=== PATIENT | male | born 1950 | race Caucasian/White ===

== ENCOUNTER 2016-10-28 08:49 | Emergency (ER) | payer MEDICARE, OTHER ==
--- NOTE | ~2016-10-28 | ER ---
PATIENT'S NAME: LILLIAN HAILE [facility] AGE: 66 Y [address] ROOM: [place], [place] [address] LOCATION: [facility] ADMIT DATE: 10/28/2016 ER/Outpatient Report DISCHARGE DATE: 10/28/2016 FAMILY PHYSICIAN: Deni Navas PA-C ATTENDING PHYSICIAN: Surya Mcgill CHIEF COMPLAINT: Transient alterations in sensorium and vision changes. HISTORY OF PRESENT ILLNESS: The patient states that he woke up this morning around 6. He was sitting in bed and looking at his computer when he felt like his vision became double and blurry. He states that he was able to put his head back and was feeling okay, but his other symptoms persisted. He denies any other symptoms such as chest pain, headache, fever, chills, nausea, vomiting, loss of balance, or other concerning signs or symptoms. He did notify his , who called the ambulance. Since their arrival, the patient has been asymptomatic with normal vital signs. The patient states that he may have had a stroke several years ago. He has a history of carotid stenosis, status post ballooning several years ago, and reports he had "normal ultrasound images at the end of August." He follows with Dr. Ellsworth and Dr. Navas in [place], [place]. He denies any symptoms at this point in time. He did not lose consciousness. PAST MEDICAL HISTORY: Documented on the record and reviewed by me. SOCIAL HISTORY: Documented on the record and reviewed by me. MEDICATIONS: Documented on the record and reviewed by me. ALLERGIES: DOCUMENTED ON THE RECORD AND REVIEWED BY ME. REVIEW OF SYSTEMS: All systems were reviewed and negative except as noted in the HPI. PHYSICAL EXAMINATION: VITAL SIGNS: Blood pressure 166/78, pulse is 69, respiratory rate is 16, temp 97.1, SpO2 is 95% on room air. GENERAL: An age-appropriate male, in no obvious pain or distress, sitting upright on the exam chair in a semi-recumbent position. NEURO: The patient is awake and alert. GCS is 15. No focal deficits. No asymmetry. Stroke scale is zero. The patient has no facial asymmetry. No PATIENT'S NAME: LILLIAN HAILE [facility] AGE: 66 Y [address] ROOM: [place], [place] [address] LOCATION: [facility] ADMIT DATE: 10/28/2016 ER/Outpatient Report DISCHARGE DATE: 10/28/2016 FAMILY PHYSICIAN: Deni Navas PA-C ATTENDING PHYSICIAN: Surya Mcgill sensory deficits. No speech impediments. No cranial nerve deficits. No asymmetry or weakness or difficulty with past pointing, rapid alternating movements, or strength of the extremities. HEENT: Normocephalic, atraumatic. Eyes are PERRL. No nystagmus. Oropharynx is clear. NECK: Supple. Trachea is midline. CHEST: Heart is regular rate and rhythm with no murmurs. LUNGS: Clear to auscultation bilateral with no rhonchi, wheezes, or rales. ABDOMEN: Soft, nontender, and nondistended. No rebound or guarding. BACK: Nontender to palpation throughout. No CVA tenderness. EXTREMITIES: Warm and well perfused with no obvious abnormalities. No edema. SKIN: Warm, dry, and intact. LABORATORY DATA AND X-RAYS: Chest x-ray unremarkable per my read. CT scan brain unremarkable per Radiology. Labs: EKG: Sinus rhythm, rate of 70 with normal intervals and left axis. No signs of acute ischemia. Repeat unchanged. Hemoglobin A1c is 6.8. CMS with a creatinine of 2.1, baseline of 2.1. GFR of 32, otherwise grossly unremarkable. Troponin is below threshold. CBC unremarkable. INR is 0.93. IMPRESSION: 1. Presyncope, much more likely than transient ischemic attack. 2. Likely diabetes. EMERGENCY DEPARTMENT COURSE: The patient was seen and evaluated. He remained asymptomatic while in the ER. No signs of hypovolemia, heart attack, or stroke. He has known carotid disease. I did confer with Dr. Vernon Ellsworth, general practitioner in [place], [place]. He reviewed the records, and at the end of August, the patient was noted to have less than 50% carotid stenosis on one side and greater than 50% on the other. However, it was not deemed intervenable by their provider there. I did inform him of the elevated A1c, and Dr. Ellsworth has requested we defer further intervention based on the patient's renal function. The patient remained otherwise asymptomatic and will be discharged home with instructions to contact Dr. Ellsworth for followup as well as Dr. Jo, the vascular/automotive service consultant, who did the carotid ballooning for re-evaluation as the patient has had some similar episodes in the past according to Dr. Ellsworth. The patient and family updated at bedside. All questions were answered, and the patient was discharged in good condition. PATIENT'S NAME: LILLIAN HAILE [facility] AGE: 66 Y [address] ROOM: [place] [id number] LOCATION: [facility] ADMIT DATE: 10/28/2016 ER/Outpatient Report DISCHARGE DATE: 10/28/2016 FAMILY PHYSICIAN: Deni Navas PA-C ATTENDING PHYSICIAN: Surya Mcgill MD MONO CHRISTIE/henrry /[id number] d: 10/28/[id number] t: 11/16/16 0853, OUTPATIENT REPORT
[2016-10-28 09:44] LABS: BASOPHIL # 0.1 K/uL (0.0-0.2); BASOPHIL % 0.8 %; EOSINOPHIL # 0.4 K/uL (0.0-0.5); EOSINOPHIL % 3.5 %; HEMATOCRIT 41.2 % (37.0-53.0); HEMOGLOBIN 13.3 g/dL (11.0-16.0); IMMATURE GRANULOCYTE % 0.3 %; LYMPHOCYTE # 1.4 K/uL (0.8-4.0); LYMPHOCYTE % 14.2 %; MCHC 32.3 gm/dL (32.0-36.5); MCV 77.6 fl (83.0-98.0); MONOCYTE # 0.7 K/uL (0.0-1.0); MONOCYTE % 7.3 %; MPV 9.4 fl (9.4-12.4); NEUTROPHIL # (ANC) 7.3 K/uL (1.4-9.0); NEUTROPHIL % 73.9 %; NRBC % 0 /100WBC (0-0.00); PLATELET COUNT 264 K/uL (150-450); RBC 5.31 M/uL (3.50-5.50); RDW-CV 14.9 % (11.9-14.6); WBC 9.9 K/uL (4.0-11.0)
[2016-10-28 09:53] LABS: INR - (THERAPEUTIC) 0.93 (0.92-1.07); PROTIME 9.8 SECONDS (9.8-11.4); PTT 30 SECONDS (25-32)
[2016-10-28 10:03] LABS: ALBUMIN 3.7 gm/dL (3.5-5.0); ALK PHOS 81 IU/L (33-138); ALT 23 IU/L (12-78); ANION GAP 13.2 (10.0-19.0); AST 10 IU/L (10-40); BLOOD UREA NITROGEN 30 mg/dL (6-24); CALCIUM 8.3 mg/dL (8.5-10.5); CHLORIDE 109 mMol/L (96-110); CO2 26 mMol/L (22-32); CREATININE 2.1 mg/dL (0.6-1.3); ESTIMATED GFR (MDRD EQUATION) 32; POTASSIUM 4.2 mMol/L (3.7-5.1); SODIUM 144 mMol/L (135-145); TOTAL BILIRUBIN 0.2 mg/dL (0.0-1.5); TOTAL PROTEIN 7.2 g/dL (6.0-8.4)
== END 2016-10-28 11:05 | disposition disaster alternative care site (69) ==
LOC: GMED 08:49
PROVIDERS: Emergency Medicine
DX: R55 Syncope and collapse (principal)

== ENCOUNTER → 2016-10-28 | Outpatient (CLI) | payer MEDICARE, OTHER | END | disposition disaster alternative care site (69) | LOC: GAMB 08:06 | DX: R53.1 Weakness (principal); R29.898 Other symptoms and signs involving the musculoskeletal system ==